=== PATIENT | female | born 1995 | race African-American/Black ===

== ENCOUNTER 2018-12-15 03:20 | Inpatient (IN) ==
[2018-12-15] MEDS ORDERED: MEPERIDINE 50 MG/1 ML VIAL IM PRN (03:29)
[2018-12-15] MEDS ORDERED: ONDANSETRON 4 MG/2 ML VIAL IV PRN (03:29)
[2018-12-15] MEDS ORDERED: BUTORPHANOL 2 MG/ML VIAL IV PRN (03:29)
[2018-12-15] MEDS: LACTATED RINGERS 1,000 ML IV SCH ×2 (03:43→05:17)
[2018-12-15] MEDS ORDERED: CITRIC ACID/SODIUM CITRATE 30 ML UDCUP PO PRN (03:57)
[2018-12-15] MEDS ORDERED: FAMOTIDINE 20 MG/2 ML VIAL IV PRN (03:59)
[2018-12-15] MEDS ORDERED: ePHEDrine 50 MG/ML AMP IV PRN (03:59)
[2018-12-15] MEDS ORDERED: fentaNYL 2 MCG/ROPIV 0.2% EPID 100 ML EPIDURAL SCH (04:00)
[2018-12-15 04:02] LABS: Basophils % 0.3 % (0.0-0.8); Eosinophils # 0.1 10*3/uL (0.0-0.87); Eosinophils % 0.9 % (0.00-10.9); Hematocrit 36.2 VOL% (35.7-47.0); Hemoglobin 11.2 GM/DL (12.0-16.0); Immature Granulocytes Absolute 0.11 #; Lymphocytes # 1.9 10*3/uL (1.4-4.0); Lymphocytes % 16.9 % (21.3-54.2); Mean Corpuscular HGB Conc 30.9 GM/DL (32-36); Mean Corpuscular Hemoglobin 25 PG (27-34); Mean Corpuscular Volume 79.4 FL (87-102); Mean Platelet Volume 10.3 FL (9.6-12.0); Monocytes # 1.3 10*3/uL (0.11-0.8); Monocytes % 11.4 % (1.7-12.7); Neutrophils # 7.6 10*3/uL (1.4-7.4); Neutrophils % 69.5 % (38.7-73.9); Platelet Count 335 T/CUMM (130-400); Red Blood Count 4.56 MC/CUMM (3.8-5.5); Red Cell Distribution Width 16.8 % (9.3-17.3); White Blood Count 10.9 T/CUMM (4-12)
[2018-12-15 04:28] LABS: Albumin 2.5 G/DL (3.4-5.0); Bilirubin,Total 0.5 MG/DL (0.2-1.0); Calcium 8.8 MG/DL (8.5-10.1); Osmolality,Calculated 273.7 MOS/KG (273-304); Potassium 3.9 MMOL/L (3.5-5.1); Total Protein 7.1 G/DL (6.4-8.3)
[2018-12-15] MEDS: OXYTOCIN/LR 20 UNIT/1,000 ML BAG IV SCH ×2 (06:50→14:55)
[2018-12-15 07:21] LABS: Apearance,Urine CLEAR (Clear); Bilirubin,Urine Negative (Negative); Blood, Urine Negative (Negative); Glucose,Urine (UA) Negative (Negative); Ketones,Urine Negative (Negative); Mucus,Urine Occasional /LPF (Occasional); Nitrite,Urine Negative (Negative); Protein,Urine Negative; RBC,Urine 1 /HPF (0-4); Squamous Epithelial Cell,Urine Occasional /HPF (0-10); Urine Color Yellow (Yellow); Urine Specific Gravity 1.018 (1.001-1.035); Urine Urobilinogen < 2.0 EU/DL (0.2-1.0); WBC,Urine <1 /HPF (0-6)
[2018-12-15] MEDS ORDERED: miSOPROStol 200 MCG TABLET ONE (08:56)
[2018-12-15] MEDS ORDERED: METHYLERGONOVINE 0.2 MG/1 ML AMP ONE (08:57)
[2018-12-15] MEDS ORDERED: CARBOPROST TROMETHAMINE 250 MCG/ML AMP IM ONE (08:57)
[2018-12-15] MEDS ORDERED: BISACODYL 10 MG SUPP RECTAL PRN (12:57)
[2018-12-15] MEDS ORDERED: ACETAMINOPHEN 325 MG TABLET PO SCH (12:57)
[2018-12-15] MEDS ORDERED: RHO(D) IMMUNE GLOBULIN 300 MCG SYRINGE IM ONE (12:57)
[2018-12-15] MEDS ORDERED: DIPH/TET/ACEL PERT BOOSTER VACCINE 0.5 ML VIAL IM ONE (12:57)
[2018-12-15] MEDS ORDERED: BENZOCAINE 20%/MENTHOL 0.5% SPRAY 56 GM CAN TOP PRN (12:57)
[2018-12-15] MEDS ORDERED: WITCH HAZEL PADS 100/JAR TOP PRN (12:57)
[2018-12-15] MEDS ORDERED: LANOLIN 50% CREAM 0.3 OZ TUBE TOP PRN (12:57)
[2018-12-15] MEDS ORDERED: HYDROCORTISONE 2.5% RECTAL CREAM 30 GM TUBE TOP PRN (12:57)
[2018-12-15] MEDS ORDERED: MEASLES/MUMPS/RUBELLA VACCINE 0.5 ML VIAL SUBCUT ONE (12:57)
[2018-12-15] MEDS ORDERED: IBUPROFEN 800 MG TABLET PO SCH (12:57)
[2018-12-15] MEDS: IBUPROFEN 800 MG TABLET PO SCH ×2 (15:18→22:11)
[2018-12-15] MEDS: ACETAMINOPHEN 500 MG TABLET PO SCH ×2 (15:18→20:03)
[2018-12-15] MEDS: levETIRAcetam 500 MG TABLET PO SCH (20:04)
[2018-12-16] MEDS: ACETAMINOPHEN 500 MG TABLET PO SCH ×3 (04:41→22:27)
[2018-12-16] MEDS: DOCUSATE SODIUM 100 MG CAPSULE PO SCH ×3 (04:42→20:15)
[2018-12-16 05:40] LABS: Basophils % 0.3 % (0.0-0.8); Eosinophils # 0.2 10*3/uL (0.0-0.87); Eosinophils % 1.2 % (0.00-10.9); Hematocrit 33.7 VOL% (35.7-47.0); Hemoglobin 10.4 GM/DL (12.0-16.0); Immature Granulocytes % 1.3 %; Immature Granulocytes Absolute 0.17 #; Lymphocytes # 2.5 10*3/uL (1.4-4.0); Lymphocytes % 18.1 % (21.3-54.2); Mean Corpuscular HGB Conc 30.9 GM/DL (32-36); Mean Corpuscular Hemoglobin 25 PG (27-34); Mean Corpuscular Volume 79.7 FL (87-102); Mean Platelet Volume 10.8 FL (9.6-12.0); Monocytes # 1.6 10*3/uL (0.11-0.8); Monocytes % 11.6 % (1.7-12.7); Neutrophils # 9.2 10*3/uL (1.4-7.4); Neutrophils % 67.5 % (38.7-73.9); Platelet Count 297 T/CUMM (130-400); Red Blood Count 4.23 MC/CUMM (3.8-5.5); Red Cell Distribution Width 16.9 % (9.3-17.3); White Blood Count 13.6 T/CUMM (4-12)
[2018-12-16] MEDS: IBUPROFEN 800 MG TABLET PO SCH ×3 (07:41→23:37)
[2018-12-16] MEDS: levETIRAcetam 500 MG TABLET PO SCH ×2 (08:35→20:15)
[2018-12-17] MEDS: ACETAMINOPHEN 500 MG TABLET PO SCH (04:31)
[2018-12-17 07:25] VITALS: BP 106/62
[2018-12-17] MEDS: IBUPROFEN 800 MG TABLET PO SCH (08:01)
[2018-12-17] MEDS: DOCUSATE SODIUM 100 MG CAPSULE PO SCH (08:03)
[2018-12-17] MEDS: levETIRAcetam 500 MG TABLET PO SCH (08:05)
== END 2018-12-17 11:55 | disposition home or self-care (01) | DRG 560 ==
LOC: N.LDOUT 03:20 → N.LD 03:24 → N.OB 12:56
PROVIDERS: ADMIT Obstetrics & Gynecology; ATTEND Obstetrics & Gynecology

== ENCOUNTER 2019-10-16 13:23 | Inpatient (IN) ==
[2019-10-16] MEDS ORDERED: ceFAZolin 2,000 MG in PREMIX 1 EACH IV ONE ×2 (14:19→16:43)
[2019-10-16] MEDS ORDERED: FAMOTIDINE 20 MG/2 ML VIAL IV ONE (14:19)
[2019-10-16] MEDS ORDERED: OXYTOCIN 10 UNIT/ML VIAL IM ONE (14:21)
[2019-10-16] MEDS ORDERED: OXYTOCIN/LR 30 UNIT/1,000 ML BAG IV ONE (14:21)
[2019-10-16] MEDS ORDERED: OXYTOCIN 10 UNIT/ML VIAL ONE (14:27)
[2019-10-16] MEDS ORDERED: LACTATED RINGERS 1,000 ML IV SCH ×2 (14:30→18:30)
[2019-10-16 14:36] LABS: Basophils % 0.5 % (0.0-0.8); Eosinophils # 0.1 10*3/uL (0.0-0.87); Hematocrit 35.3 VOL% (35.7-47.0); Hemoglobin 11.2 GM/DL (12.0-16.0); Immature Granulocytes % 1.8 %; Immature Granulocytes Absolute 0.15 #; Lymphocytes # 1.8 10*3/uL (1.4-4.0); Lymphocytes % 22.5 % (21.3-54.2); Mean Corpuscular HGB Conc 31.7 GM/DL (32-36); Mean Corpuscular Volume 79.9 FL (87-102); Mean Platelet Volume 10.2 FL (9.6-12.0); Monocytes % 17.9 % (1.7-12.7); Neutrophils % 56.3 % (38.7-73.9); Platelet Count 306 T/CUMM (130-400); Red Blood Count 4.42 MC/CUMM (3.8-5.5); Red Cell Distribution Width 16.7 % (9.3-17.3); White Blood Count 8.1 T/CUMM (4-12)
[2019-10-16 14:55] LABS: Apearance,Urine CLEAR (Clear); Bacteria,Urine Occasional /HPF (Few); Bilirubin,Urine Negative (Negative); Blood, Urine Negative (Negative); Glucose,Urine (UA) Negative (Negative); Hyaline Casts,Urine 1 /LPF (0-3); Ketones,Urine 5 mg/dL (Negative); Mucus,Urine Occasional /LPF (Occasional); Nitrite,Urine Negative (Negative); Protein,Urine Negative; RBC,Urine 1 /HPF (0-4); Squamous Epithelial Cell,Urine Occasional /HPF (0-10); Urine Color Yellow (Yellow); Urine Specific Gravity 1.018 (1.001-1.035); WBC,Urine 1 /HPF (0-6)
[2019-10-16 15:12] LABS: Albumin 2.5 G/DL (3.4-5.0); Bilirubin,Total 0.4 MG/DL (0.2-1.0); Calcium 9.1 MG/DL (8.5-10.1); Osmolality,Calculated 270.7 MOS/KG (273-304); Total Protein 7.2 G/DL (6.4-8.3)
[2019-10-16 15:18] LABS: Eosinophils 2 % (0-10); Lymphocytes 26 % (20-55); Myelocytes 1 %; Segmented Neutrophils 64 % (50-85); Total Cells Counted 100
[2019-10-16 15:31] LABS: Anisocytosis 1+; Microcytosis 1+
[2019-10-16 15:32] LABS: Ovalocytes Few; Polychromasia 1+; Spherocytes Few
[2019-10-16 15:33] LABS: Platelet Estimate Normal
[2019-10-16] MEDS ORDERED: ceFAZolin 1,000 MG in SYRINGE 1 EACH IV SCH ×2 (16:00→18:30)
[2019-10-16] MEDS ORDERED: METOCLOPRAMIDE 10 MG/2 ML VIAL IV ONE (16:53)
[2019-10-16] MEDS ORDERED: CITRIC ACID/SODIUM CITRATE 30 ML UDCUP PO ONE (16:55)
[2019-10-16] MEDS ORDERED: OXYTOCIN/LR 20 UNIT/1,000 ML BAG IV ONE ×2 (17:01→18:29)
[2019-10-16] MEDS ORDERED: BUPIVACAINE SPINAL 0.75% 2 ML AMP SPINAL ONE (17:01)
[2019-10-16 17:53] LABS: Apearance,Urine CLEAR (Clear); Bilirubin,Urine Negative (Negative); Blood, Urine Negative (Negative); Calcium Oxalate Crystals,Urine Few /HPF (Few); Glucose,Urine (UA) Negative (Negative); Ketones,Urine Negative (Negative); Mucus,Urine Occasional /LPF (Occasional); Nitrite,Urine Negative (Negative); Protein,Urine Negative; RBC,Urine 2 /HPF (0-4); Squamous Epithelial Cell,Urine Occasional /HPF (0-10); Urine Specific Gravity 1.019 (1.001-1.035); WBC,Urine 4 /HPF (0-6)
[2019-10-16] MEDS ORDERED: LORazepam 2 MG/1 ML VIAL IV PRN (17:53)
[2019-10-16 17:54] LABS: Urine Color Dark Yellow (Yellow)
[2019-10-16 17:57] LABS: Cord Arterial Blood HCO3 21.8 MMOL/L
[2019-10-16 17:58] LABS: Cord Venous Blood HCO3 23.3 MMOL/L; Cord Venous Blood PCO2 40.4 MMHG; Cord Venous Blood PO2 35.2 MMHG
[2019-10-16] MEDS ORDERED: diphenhydrAMINE 50 MG/1 ML VIAL ONE (18:29)
[2019-10-16] MEDS ORDERED: ONDANSETRON 4 MG/2 ML VIAL ONE (18:29)
[2019-10-16] MEDS ORDERED: RHO(D) IMMUNE GLOBULIN 300 MCG SYRINGE IM ONE (18:29)
[2019-10-16] MEDS ORDERED: ONDANSETRON 4 MG/2 ML VIAL IV PRN (18:29)
[2019-10-16] MEDS ORDERED: MORPHINE 10 MG/10 ML VIAL ONE (18:29)
[2019-10-16] MEDS ORDERED: ACETAMINOPHEN 325 MG TABLET PO PRN (18:29)
[2019-10-16] MEDS ORDERED: LACTATED RINGERS 1,000 ML IV ONE (18:30)
[2019-10-16] MEDS ORDERED: PHENYLEPHRINE 1 MG/10 ML SYRINGE IV ONE (18:30)
[2019-10-16] MEDS ORDERED: KETOROLAC 30 MG/1 ML VIAL ONE (18:30)
[2019-10-16] MEDS ORDERED: CITRIC ACID/SODIUM CITRATE 30 ML UDCUP PO SCH (21:00)
[2019-10-16] MEDS: IBUPROFEN 800 MG TABLET PO PRN (21:07)
[2019-10-16] MEDS ORDERED: diphenhydrAMINE 50 MG/1 ML VIAL IV PRN (22:04)
[2019-10-16] MEDS: DOCUSATE SODIUM 100 MG CAPSULE PO SCH (22:55)
[2019-10-17] MEDS ORDERED: ceFAZolin 1,000 MG in SYRINGE 1 EACH IV SCH (01:00)
[2019-10-17] MEDS ORDERED: SODIUM CHLORIDE 0.9% 100 ML IV ONE (01:12)
[2019-10-17] MEDS: ceFAZolin 1,000 MG in SYRINGE 1 EACH IV SCH ×3 (01:15→17:57)
[2019-10-17 07:26] LABS: Basophils % 0.4 % (0.0-0.8); Eosinophils # 0.1 10*3/uL (0.0-0.87); Eosinophils % 0.7 % (0.00-10.9); Hematocrit 32.4 VOL% (35.7-47.0); Hemoglobin 10.4 GM/DL (12.0-16.0); Immature Granulocytes % 1.2 %; Immature Granulocytes Absolute 0.12 #; Lymphocytes # 2.1 10*3/uL (1.4-4.0); Lymphocytes % 20.1 % (21.3-54.2); Mean Corpuscular HGB Conc 32.1 GM/DL (32-36); Mean Corpuscular Volume 79.6 FL (87-102); Mean Platelet Volume 10.2 FL (9.6-12.0); Monocytes % 11.7 % (1.7-12.7); Neutrophils % 65.9 % (38.7-73.9); Platelet Count 258 T/CUMM (130-400); Red Blood Count 4.07 MC/CUMM (3.8-5.5); Red Cell Distribution Width 16.7 % (9.3-17.3); White Blood Count 10.3 T/CUMM (4-12)
[2019-10-17] MEDS: levETIRAcetam 500 MG TABLET PO SCH ×2 (08:53→21:05)
[2019-10-17] MEDS: MULTIVITAMIN (PRENATAL) TABLET PO SCH (08:53)
[2019-10-17] MEDS: DOCUSATE SODIUM 100 MG CAPSULE PO SCH ×2 (08:53→21:05)
[2019-10-17] MEDS ORDERED: levETIRAcetam 500 MG TABLET PO SCH (09:00)
[2019-10-17] MEDS ORDERED: diphenhydrAMINE CAP 25 MG CAPSULE PO PRN (12:24)
[2019-10-17] MEDS: IBUPROFEN 800 MG TABLET PO PRN ×2 (12:37→19:55)
[2019-10-18] MEDS: IBUPROFEN 800 MG TABLET PO PRN (06:45)
[2019-10-18] MEDS: SIMETHICONE CHEW 80 MG TABLET PO PRN ×2 (06:48→09:17)
[2019-10-18] MEDS: METOCLOPRAMIDE 10 MG TABLET PO PRN (09:17)
[2019-10-18] MEDS: DOCUSATE SODIUM 100 MG CAPSULE PO SCH ×2 (09:17→20:19)
[2019-10-18] MEDS: MAGNESIUM HYDROXIDE SUSP 30 ML UDCUP PO PRN (09:17)
[2019-10-18] MEDS: levETIRAcetam 500 MG TABLET PO SCH ×2 (09:28→20:19)
[2019-10-19] MEDS: SIMETHICONE CHEW 80 MG TABLET PO PRN (01:29)
[2019-10-19] MEDS: IBUPROFEN 800 MG TABLET PO PRN ×2 (06:51→13:29)
[2019-10-19] MEDS: MULTIVITAMIN (PRENATAL) TABLET PO SCH (08:23)
[2019-10-19] MEDS: METOCLOPRAMIDE 10 MG TABLET PO PRN (08:24)
[2019-10-19] MEDS: MAGNESIUM HYDROXIDE SUSP 30 ML UDCUP PO PRN (08:24)
[2019-10-19] MEDS: DOCUSATE SODIUM 100 MG CAPSULE PO SCH (08:24)
[2019-10-19] MEDS: levETIRAcetam 500 MG TABLET PO SCH (08:24)
[2019-10-19 10:29] VITALS: BP 110/78
== END 2019-10-19 13:53 | disposition home or self-care (01) | DRG 540 ==
LOC: N.LDOUT 13:23 → N.LD 13:31 → N.OB 10-17 09:21
PROVIDERS: ADMIT Obstetrics & Gynecology; ATTEND Obstetrics & Gynecology
PROC: LDCSECT (ICD-10-PCS; 2019-10-16 17:00)

== ENCOUNTER 2022-05-04 05:53 | Inpatient (IN) ==
[2022-05-04] MEDS ORDERED: LACTATED RINGERS 1,000 ML IV PRN (06:02)
[2022-05-04] MEDS ORDERED: METHYLERGONOVINE 0.2 MG/1 ML AMP IM PRN (06:02)
[2022-05-04] MEDS ORDERED: OXYTOCIN/LR 20 UNIT/1,000 ML BAG IV ONE ×2 (06:02→14:48)
[2022-05-04] MEDS ORDERED: CARBOPROST TROMETHAMINE 250 MCG/ML AMP IM PRN (06:02)
[2022-05-04] MEDS ORDERED: LACTATED RINGERS 1,000 ML IV ONE (06:02)
[2022-05-04] MEDS ORDERED: FAMOTIDINE 20 MG/2 ML VIAL IV PRN (06:02)
[2022-05-04] MEDS ORDERED: TRANEXAMIC ACID 1,000 MG in SODIUM CHLORIDE 0.9% 100 ML IV PRN (06:02)
[2022-05-04] MEDS ORDERED: CITRIC ACID/SODIUM CITRATE 30 ML UDCUP PO PRN (06:02)
[2022-05-04] MEDS ORDERED: ceFAZolin 3,000 MG in SYRINGE 1 EACH IV PRN (06:02)
[2022-05-04] MEDS ORDERED: miSOPROStoL 200 MCG TABLET RECTAL PRN (06:02)
[2022-05-04 06:20] LABS: Basophils # 0.1 10*3/uL (0.0-0.2); Basophils % 0.6 % (0.0-0.8); Eosinophils # 0.2 10*3/uL (0.0-0.87); Eosinophils % 1.9 % (0.00-10.9); Hematocrit 38.4 VOL% (35.7-47.0); Hemoglobin 11.9 GM/DL (12.0-16.0); Immature Granulocytes % 1.1 %; Lymphocytes # 2.2 10*3/uL (1.4-4.0); Lymphocytes % 25.7 % (21.3-54.2); Monocytes # 1.2 10*3/uL (0.11-0.8); Monocytes % 13.3 % (1.7-12.7); Neutrophils % 57.4 % (38.7-73.9); Platelet Count 367 T/CUMM (130-400); Red Blood Count 4.92 MC/CUMM (3.8-5.5); Red Cell Distribution Width 17.5 % (9.3-17.3); White Blood Count 8.7 T/CUMM (4-12)
[2022-05-04 06:40] LABS: Albumin 2.8 G/DL (3.4-5.0); Bilirubin,Total 0.6 MG/DL (0.20-1.00); Calcium 9.5 MG/DL (8.5-10.1); Osmolality,Calculated 266.1 MOS/KG (273-304); Potassium 3.6 MMOL/L (3.5-5.1); Total Protein 7.8 G/DL (6.4-8.2)
[2022-05-04] MEDS ORDERED: OXYTOCIN 10 UNIT/ML VIAL IM ONE (08:13)
[2022-05-04] MEDS ORDERED: OXYTOCIN/LR 30 UNIT/1,000 ML BAG IV ONE (08:13)
[2022-05-04] MEDS ORDERED: ONDANSETRON 4 MG/2 ML VIAL ONE (11:44)
[2022-05-04] MEDS ORDERED: buprenorphine HCL 0.3 MG/ML VIAL ONE (11:44)
[2022-05-04] MEDS ORDERED: PHENYLEPHRINE 1 MG/10 ML SYRINGE IV ONE (11:44)
[2022-05-04] MEDS ORDERED: ACETAMINOPHEN INJ 1,000 MG/100 ML VIAL IV ONE (11:44)
[2022-05-04] MEDS ORDERED: KETOROLAC 30 MG/1 ML VIAL ONE (11:44)
[2022-05-04] MEDS ORDERED: BUPIVACAINE SPINAL 0.75% 2 ML AMP SPINAL ONE (11:44)
[2022-05-04] MEDS ORDERED: TRANEXAMIC ACID 1,000 MG/10 ML VIAL ONE (12:37)
[2022-05-04] MEDS ORDERED: SODIUM CHLORIDE 0.9% 0 ML IV ONE (12:37)
[2022-05-04] MEDS ORDERED: miSOPROStoL 200 MCG TABLET ONE (12:37)
[2022-05-04] MEDS ORDERED: METHYLERGONOVINE 0.2 MG/1 ML AMP ONE (12:38)
[2022-05-04] MEDS ORDERED: CARBOPROST TROMETHAMINE 250 MCG/ML AMP IM ONE (12:38)
[2022-05-04 14:26] LABS: Cord Arterial Blood HCO3 23.4 MMOL/L
[2022-05-04 14:27] LABS: Mucus,Urine Occasional /LPF (Occasional); RBC,Urine <1 /HPF (0-4)
[2022-05-04 14:29] LABS: Bilirubin,Urine Negative (Negative); Blood, Urine Negative (Negative); Glucose,Urine (UA) Negative (Negative); Ketones,Urine >160 mg/dL (Negative); Nitrite,Urine Negative (Negative); Protein,Urine Negative (Negative); Urine Appearance Clear (Clear); Urine Color Yellow (Yellow); Urine pH 7.5 (4.5-8.0)
[2022-05-04 14:30] LABS: Cord Venous Blood HCO3 23.2 MMOL/L; Cord Venous Blood PCO2 43.8 MMHG; Cord Venous Blood PO2 29.3
[2022-05-04] MEDS ORDERED: RHO(D) IMMUNE GLOBULIN 300 MCG SYRINGE IM ONE (14:48)
[2022-05-04] MEDS ORDERED: ONDANSETRON 4 MG/2 ML VIAL IV PRN (14:48)
[2022-05-04] MEDS ORDERED: ACETAMINOPHEN 325 MG TABLET PO PRN (14:48)
[2022-05-04] MEDS ORDERED: LACTATED RINGERS 1,000 ML IV SCH (15:00)
[2022-05-04] MEDS: levETIRAcetam 500 MG TABLET PO SCH (16:31)
[2022-05-04] MEDS ORDERED: KETOROLAC 30 MG/1 ML VIAL IV ONE (19:00)
[2022-05-04] MEDS: KETOROLAC 30 MG/1 ML VIAL IV SCH (20:00)
[2022-05-04] MEDS: ACETAMINOPHEN 500 MG TABLET PO SCH (20:00)
[2022-05-04] MEDS: SIMETHICONE CHEW 80 MG TABLET PO PRN (20:56)
[2022-05-04] MEDS: DOCUSATE SODIUM 100 MG CAPSULE PO SCH (20:56)
[2022-05-04] MEDS: ceFAZolin 2,000 MG/50 ML DUPLEX IV SCH (20:57)
[2022-05-04] MEDS ORDERED: levETIRAcetam 500 MG TABLET PO SCH (21:00)
[2022-05-04 23:16] LABS: Basophils % 0.4 % (0.0-0.8); Eosinophils # 0.1 10*3/uL (0.0-0.87); Eosinophils % 0.4 % (0.00-10.9); Hematocrit 35.2 VOL% (35.7-47.0); Hemoglobin 11.2 GM/DL (12.0-16.0); Immature Granulocytes Absolute 0.11 #; Lymphocytes # 2.1 10*3/uL (1.4-4.0); Lymphocytes % 19.1 % (21.3-54.2); Mean Corpuscular HGB Conc 31.8 GM/DL (32-36); Mean Corpuscular Volume 78.4 FL (87-102); Mean Platelet Volume 10.5 FL (9.6-12.0); Monocytes # 1.1 10*3/uL (0.11-0.8); Monocytes % 9.9 % (1.7-12.7); Neutrophils % 69.2 % (38.7-73.9); Platelet Count 323 T/CUMM (130-400); Red Blood Count 4.49 MC/CUMM (3.8-5.5); Red Cell Distribution Width 17.1 % (9.3-17.3); White Blood Count 11.2 T/CUMM (4-12)
[2022-05-05] MEDS: KETOROLAC 30 MG/1 ML VIAL IV SCH ×2 (02:14→08:00)
[2022-05-05] MEDS: ACETAMINOPHEN 500 MG TABLET PO SCH (02:52)
[2022-05-05] MEDS: ceFAZolin 2,000 MG/50 ML DUPLEX IV SCH (04:13)
[2022-05-05] MEDS: levETIRAcetam 500 MG TABLET PO SCH ×2 (05:54→16:57)
[2022-05-05 06:08] LABS: Basophils % 0.4 % (0.0-0.8); Eosinophils # 0.1 10*3/uL (0.0-0.87); Eosinophils % 1.2 % (0.00-10.9); Hematocrit 34.5 VOL% (35.7-47.0); Hemoglobin 10.9 GM/DL (12.0-16.0); Immature Granulocytes % 0.4 %; Immature Granulocytes Absolute 0.04 #; Lymphocytes # 2.1 10*3/uL (1.4-4.0); Lymphocytes % 23.7 % (21.3-54.2); Mean Corpuscular HGB Conc 31.6 GM/DL (32-36); Mean Corpuscular Volume 78.2 FL (87-102); Mean Platelet Volume 10.2 FL (9.6-12.0); Monocytes # 1.1 10*3/uL (0.11-0.8); Monocytes % 11.8 % (1.7-12.7); Neutrophils % 62.5 % (38.7-73.9); Platelet Count 276 T/CUMM (130-400); Red Blood Count 4.41 MC/CUMM (3.8-5.5); Red Cell Distribution Width 17.1 % (9.3-17.3); White Blood Count 8.9 T/CUMM (4-12)
[2022-05-05] MEDS: METOCLOPRAMIDE 10 MG TABLET PO SCH ×2 (08:01→16:57)
[2022-05-05] MEDS: DOCUSATE SODIUM 100 MG CAPSULE PO SCH ×2 (09:32→20:09)
[2022-05-05] MEDS: MULTIVITAMIN (PRENATAL) TABLET PO SCH (09:32)
[2022-05-05] MEDS: MAGNESIUM HYDROXIDE SUSP 30 ML UDCUP PO PRN ×2 (09:32→20:09)
[2022-05-05] MEDS: IBUPROFEN 800 MG TABLET PO PRN (17:03)
[2022-05-05] MEDS ORDERED: BISACODYL 10 MG SUPP RECTAL PRN (19:59)
[2022-05-05] MEDS: SIMETHICONE CHEW 80 MG TABLET PO PRN (20:09)
[2022-05-05] MEDS: oxyCODONE/ACETAMINOPHEN 5-325 MG TABLET PO PRN (20:10)
[2022-05-05] MEDS ORDERED: HydrOXYzine PAMOATE 25 MG CAPSULE PO PRN (23:25)
[2022-05-06] MEDS: IBUPROFEN 800 MG TABLET PO PRN ×2 (03:56→20:31)
[2022-05-06] MEDS: levETIRAcetam 500 MG TABLET PO SCH ×2 (06:07→17:43)
[2022-05-06] MEDS: DOCUSATE SODIUM 100 MG CAPSULE PO SCH ×2 (09:20→20:29)
[2022-05-06] MEDS: MULTIVITAMIN (PRENATAL) TABLET PO SCH (09:20)
[2022-05-06] MEDS: oxyCODONE/ACETAMINOPHEN 5-325 MG TABLET PO PRN ×3 (09:23→20:30)
[2022-05-07] MEDS: IBUPROFEN 800 MG TABLET PO PRN (05:10)
[2022-05-07] MEDS: levETIRAcetam 500 MG TABLET PO SCH (05:10)
[2022-05-07] MEDS: MULTIVITAMIN (PRENATAL) TABLET PO SCH (09:15)
[2022-05-07] MEDS: SIMETHICONE CHEW 80 MG TABLET PO PRN (09:16)
[2022-05-07] MEDS: DOCUSATE SODIUM 100 MG CAPSULE PO SCH (09:16)
[2022-05-07 11:59] VITALS: BP 112/73
== END 2022-05-07 11:50 | disposition home or self-care (01) | DRG 540 ==
LOC: N.LDOUT 05:53 → N.LD 05:55 → N.OB 17:00
PROVIDERS: ADMIT Obstetrics & Gynecology; ATTEND Obstetrics & Gynecology
PROC: LDCSECT (ICD-10-PCS; 2022-05-04 14:00)